=== PATIENT | male | born 1955 | race Hispanic/Latino ===

== ENCOUNTER → 2025-03-17 | Outpatient (CLI) | payer OTHER ==
--- NOTE | 2025-03-18 07:03 | HMCIMG ---
EXAMINATION: ULTRASOUND SCREENING OF THE ABDOMINAL AORTA WITH COLOR DOPPLER. CLINICAL HISTORY: Screening. COMPARISON: No prior studies. TECHNIQUE: Real-time grayscale ultrasound images of the aorta. In addition, color Doppler is medically necessary to perform in order to evaluate vascularity and blood flow. FINDINGS: The proximal, mid, and distal aspects of the abdominal aorta are normal in caliber measuring 2.0 x 2.0 x 2.2 cm, 1.8 x 1.8 x 1.7 cm, and 1.8 x 1.8 x 1.7 cm in the craniocaudal, AP and transverse dimensions respectively. There is no evidence of plaques in the aorta. The velocity in the aorta is 95 cm/s. The right common iliac artery is normal in caliber measuring 1.2 x 1.1 x 1.2 cm (PSV is 175 cm/s). There is stenosis of 20% to 49% in the right iliac artery with increased velocity. The left common iliac artery is normal in caliber measuring 1.2 x 0.9 x 1.1 cm (PSV is 94 cm/s). IMPRESSION: Mild intimal thickening in the abdominal aorta. No aneurysm. 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 /[place]
== END | disposition home or self-care (01) ==
LOC: RAH 08:49
PROVIDERS: ATTEND Student in an Organized Health Care Education/Training Program
DX: Z13.6 Encounter for screening for cardiovascular disorders (principal); I70.8 Atherosclerosis of other arteries
CPT/HCPCS: 76775